=== PATIENT | female | born 1955 | race Two or more races ===

== ENCOUNTER 2018-05-25 07:24 | Day surgery (SDC) | payer OTHER ==
[2018-05-25] MEDS ORDERED: IRON SUCROSE INJECTION 200 MG in SODIUM CHLORIDE 100 ML IVPB ONE (09:00)
[2018-05-25 10:03] VITALS: TEMP 98.5
[2018-05-25 10:46] VITALS: BP 146/84; PULSE 62
== END 2018-05-25 10:47 | disposition home or self-care (01) ==
LOC: JONCNONCHE 07:24 → J7W 09:41 → JONCNONCHE 10:47
PROVIDERS: ATTEND Internal Medicine Hematology & Oncology
PROC: 3E033GC Introduction of Other Therapeutic Substance into Peripheral Vein, Percutaneous Approach (ICD-10-PCS; principal; 2018-05-25)
DX: D50.9 Iron deficiency anemia, unspecified (principal)
CPT/HCPCS: 96365; J1756

== ENCOUNTER 2018-06-15 07:22 | Day surgery (SDC) | payer OTHER ==
[2018-06-15] MEDS ORDERED: IRON SUCROSE INJECTION 200 MG in SODIUM CHLORIDE 100 ML IVPB ONE (10:00)
[2018-06-15 16:52] VITALS: TEMP 98.7
[2018-06-15 16:54] VITALS: BP 146/88; PULSE 64
== END 2018-06-15 11:50 | disposition home or self-care (01) ==
LOC: JONCNONCHE 07:22 → J7W 10:48 → JONCNONCHE 11:50
PROVIDERS: ATTEND Internal Medicine Hematology & Oncology
PROC: 3E033GC Introduction of Other Therapeutic Substance into Peripheral Vein, Percutaneous Approach (ICD-10-PCS; principal; 2018-06-15)
DX: D50.9 Iron deficiency anemia, unspecified (principal)
CPT/HCPCS: 96365; J1756

== ENCOUNTER 2018-07-06 07:35 | Emergency (ER) | payer OTHER ==
[2018-07-06 07:55] VITALS: TEMP 98.6; BMI 33.9
[2018-07-06] MEDS ORDERED: FAMOTIDINE 20 MG/50 ML IVPB 20 MG/50 ML MG IVPB ONE ×2 (07:55→08:01)
[2018-07-06] MEDS ORDERED: methylPREDNISolone NA SUCC 125 MG/2 ML VIAL IVPB ONE (07:55)
[2018-07-06] MEDS ORDERED: methylPREDNISolone NA SUCC 125 MG/2 ML VIAL ONE (08:01)
--- NOTE | 2018-07-06 08:11 | PDOC ---
History of Present Illness - General Chief Complaint: Allergic Reaction Stated Complaint: ALLERGIC RX Time Seen by Provider: 07/06/18 07:50 History Source: Patient Exam Limitations: No Limitations - History of Present Illness Initial Comments: 07/06/18 08:05 Patient is a 63F with history of HTN here today complaining of lip swelling with associated urticarial rash. Patient states that she takes lisinopril and hydrochlorothiazide for her blood pressure. Denies any new changes to her medications. Denies changes to soaps or new foods. Denies insect stings. Patient states that this reaction started yesterday with a rash, she is presenting to the ED today because her lips have started swelling. Denies shortness of breath, chest pain, stridor. Past History - Past Medical History Allergies/Adverse Reactions: Allergies Allergy/AdvReac Type Severity Reaction Status Date / Time No Known Allergies Allergy Verified 07/06/18 07:42 Home Medications: Ambulatory Orders Amlodipine Besylate [Norvasc -] 5 mg PO DAILY #30 tablet 07/06/18 Diphenhydramine [Benadryl -] 50 mg PO Q6H #8 capsule 07/06/18 Prednisone [Prednisone 50 MG TABLETS] 50 mg PO DAILY #3 tablet 07/06/18 COPD: No HTN: Yes - Surgical History Gastric Stapling: Yes (gastric bypass) - Suicide/Smoking/Psychosocial Hx Smoking History: Never smoked Number of Cigarettes Smoked Daily: 0 Hx Alcohol Use: No Drug/Substance Use Hx: No Review of Systems - Review of Systems Comments:: 07/06/18 08:08 GENERAL/CONSTITUTIONAL: No fever or chills. No weakness. HEAD, EYES, EARS, NOSE AND THROAT: No change in vision. No sore throat. CARDIOVASCULAR: No chest pain or shortness of breath RESPIRATORY: No cough, wheezing, or hemoptysis. +Lip swelling GASTROINTESTINAL: No nausea, vomiting, diarrhea or constipation. GENITOURINARY: No dysuria, frequency, or change in urination. MUSCULOSKELETAL: No joint or muscle swelling or pain. No neck or back pain. SKIN: + rash NEUROLOGIC: No headache, vertigo, loss of consciousness, or change in strength/ sensation. ENDOCRINE: No increased thirst. No abnormal weight change HEMATOLOGIC/LYMPHATIC: No anemia, easy bleeding, or history of blood clots. ALLERGIC/IMMUNOLOGIC: + hives +skin allergy. *Physical Exam - Vital Signs Last Vital Signs Temp Pulse Resp BP Pulse Ox 98.6 F 73 18 174/87 97 07/06/18 07:42 07/06/18 07:42 07/06/18 07:42 07/06/18 07:42 07/06/18 07:42 - Physical Exam Comments: 07/06/18 08:09 GENERAL: Awake, alert, and fully oriented, in no acute distress HEAD: No signs of trauma, normocephalic, atraumatic EYES: PERRLA, EOMI, sclera anicteric, conjunctiva clear ENT: Auricles normal inspection, hearing grossly normal, nares patent. Moist mucosa. Swollen lips. Normal uvula, no edema under tongue, no stridor NECK: Normal ROM, supple, no lymphadenopathy, JVD, or masses LUNGS: No distress, speaks full sentences, clear to auscultation bilaterally HEART: Regular rate and rhythm, normal S1 and S2, no murmurs, rubs or gallops, peripheral pulses normal and equal bilaterally. ABDOMEN: Soft, nontender, normoactive bowel sounds. No guarding, no rebound. No masses EXTREMITIES: Normal inspection, Normal range of motion, no edema. No clubbing or cyanosis. NEUROLOGICAL: Cranial nerves II through XII grossly intact. Normal speech, normal gait, no focal sensorimotor deficits SKIN: Warm, Dry, normal turgor, +diffuse urticarial rash Medical Decision Making - Medical Decision Making 07/06/18 08:10 Patient is 63F with history of HTN here today with allergic reaction. Vital signs normal and stable. Airway clear. Will treat with pepcid, benadryl, steroids. Deferring on epi at this point given stable airway, no wheezing and slow development of reaction. 07/06/18 10:02 Patient reassessed. Improving. Less angioedema, less urticaria. Lungs clear. 07/06/18 14:29 Patient reassessed, angioedema resolved, rash resolved. Will discharge. Instructed to not take her blood pressure medication. Instructed to take benadryl q6 for the next two days. Return precautions discussed. Instructed to follow up with pcp. Patient expressed understanding. *DC/Admit/Observation/Transfer Diagnosis at time of Disposition: Allergic reaction - Discharge Dispostion Disposition: HOME Condition at time of disposition: Good Decision to Admit order: No - Referrals Referrals: Fermin Griffin MD [Primary Care Provider] - - Patient Instructions Printed Discharge Instructions: DI for Adverse Drug Reaction -- Allergic Additional Instructions: Please stop taking your current blood pressure medication immediately Please take Norvasc 5 for your blood pressure instead. Please return if you have any new, worsening or concerning symptoms. Please take the benadryl 50mg as directed every 6 hours. Please take the prednisone daily starting tomorrow. - Post Discharge Activity
--- NOTE | 2018-07-06 08:43 | PDOC ---
Attending Attestation - Resident Resident Name: Fermin Dhaliwal - ED Attending Attestation I have performed the following: I have examined & evaluated the patient, The case was reviewed & discussed with the resident, I agree w/resident's findings & plan, Exceptions are as noted - HPI HPI: 07/06/18 08:37 63-year-old female history of hypertension here today complaining of an ALLERGIC reaction. Patient states her symptoms started yesterday with itching on her skin and the rash she noticed 1 small area of swelling in her upper lip today when she woke up she noticed significant lip swelling denies any wheezing or stridor no difficulty breathing or difficulty swallowing she is on JA inhibitor lisinopril. No history of similar ALLERGIC reactions no new medications she did have a hernia repair 2 weeks ago with mesh placement but denies any new antibiotics or other new foods - Physicial Exam PE: 07/06/18 08:4 awake alert lungs clear bilaterally. heart rrr nomrg. abd soft nt nd. skin warm and dry. noted urticarial type rash HEENT: upper and lower lip swelling. no tongue swelling. no uvular edema. no sublingual swelling or edema. no stridor. no wheezing. - Medical Decision Making 07/06/18 08:43 63 yo F with allergic reaction involving face and lips. no other signs of current airway involvement. unknown source, possible AJ inhibitor. no new food.s plan discontinue aj, steroids, benadryl, pepcid, . will observe. call pt insurance auditor to discuss med adjustment. 07/06/18 14:31 pt reassessed. much improved. lip swelling improved. rash not visible. will dc with prednisone. told to stop her lisnipril. called rena goode to discuss awaiting call back. 07/06/18 14:45 d/w rena arredondo. recommend dc lisinopril. start norvasc 5 mg. will see her monday at 12:30.
[2018-07-06] MEDS ORDERED: IRON SUCROSE INJECTION 200 MG in SODIUM CHLORIDE 100 ML IVPB ONE (09:00)
[2018-07-06 15:10] VITALS: BP 137/71; PULSE 85
== END 2018-07-06 15:10 | disposition home or self-care (01) ==
LOC: JER 07:35
PROC: 3E033GC Introduction of Other Therapeutic Substance into Peripheral Vein, Percutaneous Approach (ICD-10-PCS; principal; 2018-07-06)
DX: T78.40XA Allergy, unspecified, initial encounter (principal); I10 Essential (primary) hypertension
CPT/HCPCS: 96365; 96375; 96376; 99284-25

== ENCOUNTER 2018-07-13 07:33 | Day surgery (SDC) | payer OTHER ==
[2018-07-13] MEDS ORDERED: IRON SUCROSE INJECTION 200 MG in SODIUM CHLORIDE 100 ML IVPB ONE (09:00)
[2018-07-13 17:37] VITALS: BP 149/88; PULSE 75; TEMP 97.9
== END 2018-07-13 10:45 | disposition home or self-care (01) ==
LOC: JONCNONCHE 07:33 → J7W 09:22 → JONCNONCHE 10:45
PROVIDERS: ATTEND Internal Medicine Hematology & Oncology
PROC: 3E033GC Introduction of Other Therapeutic Substance into Peripheral Vein, Percutaneous Approach (ICD-10-PCS; principal; 2018-07-13)
DX: D50.9 Iron deficiency anemia, unspecified (principal)
CPT/HCPCS: 96365; J1756

== ENCOUNTER 2018-07-23 07:26 | Day surgery (SDC) | payer OTHER ==
[2018-07-23] MEDS ORDERED: IRON SUCROSE INJECTION 200 MG in SODIUM CHLORIDE 100 ML IVPB ONE (09:00)
[2018-07-23 09:21] VITALS: TEMP 97.9
[2018-07-23 11:18] VITALS: BP 146/76; PULSE 63
== END 2018-07-23 10:05 | disposition home or self-care (01) ==
LOC: JONCCHEMO 07:26 → J7W 09:13 → JONCCHEMO 10:05
PROVIDERS: ATTEND Internal Medicine Hematology & Oncology
PROC: 3E033GC Introduction of Other Therapeutic Substance into Peripheral Vein, Percutaneous Approach (ICD-10-PCS; principal; 2018-07-23)
DX: D50.9 Iron deficiency anemia, unspecified (principal)
CPT/HCPCS: 96365; J1756

== ENCOUNTER 2018-09-03 07:29 | Day surgery (SDC) | payer OTHER ==
[2018-09-03] MEDS ORDERED: IRON SUCROSE INJECTION 200 MG in SODIUM CHLORIDE 100 ML IVPB ONE (09:00)
[2018-09-03 13:17] VITALS: TEMP 98.1
[2018-09-03 13:21] VITALS: BP 140/77; PULSE 66
== END 2018-09-03 10:00 | disposition home or self-care (01) ==
LOC: JONCCHEMO 07:29 → JONCNONCHE 07:29 → J7W 09:00 → JONCNONCHE 10:00
PROVIDERS: ATTEND Internal Medicine Hematology & Oncology
PROC: 3E033GC Introduction of Other Therapeutic Substance into Peripheral Vein, Percutaneous Approach (ICD-10-PCS; principal; 2018-09-03)
DX: D50.9 Iron deficiency anemia, unspecified (principal)
CPT/HCPCS: 96365; J1756

== ENCOUNTER 2018-10-01 07:20 | Day surgery (SDC) | payer OTHER ==
[2018-10-01] MEDS ORDERED: IRON SUCROSE INJECTION 200 MG in SODIUM CHLORIDE 100 ML IVPB ONE (10:00)
[2018-10-01 15:35] VITALS: TEMP 97.7
[2018-10-01 15:58] VITALS: BP 146/78; PULSE 60
== END 2018-10-01 10:15 | disposition home or self-care (01) ==
LOC: JONCNONCHE 07:20 → J7W 09:19 → JONCNONCHE 10:15
PROVIDERS: ATTEND Internal Medicine Hematology & Oncology
PROC: 3E033GC Introduction of Other Therapeutic Substance into Peripheral Vein, Percutaneous Approach (ICD-10-PCS; principal; 2018-10-01)
DX: D50.9 Iron deficiency anemia, unspecified (principal)
CPT/HCPCS: 96365; J1756

== ENCOUNTER 2020-09-21 19:08 | Emergency (ER) | payer OTHER ==
[2020-09-21 19:11] VITALS: BMI 38.7
[2020-09-21] MEDS ORDERED: FAMOTIDINE 20 MG/50 ML IVPB 20 MG/50 ML MG IVPB ONE ×2 (19:58→20:11)
[2020-09-21] MEDS ORDERED: ACETAMINOPHEN 1000 MG/100 ML VIAL (NON FORMULARY) IVPB ONE (19:58)
[2020-09-21] MEDS ORDERED: MAG HYDROX/AL HYDROX/SIMETH 30 ML UNIT-DOSE CUP PO ONE (19:58)
[2020-09-21] MEDS ORDERED: ONDANSETRON 4 MG/2 ML VIAL IVPUSH ONE (19:58)
[2020-09-21] MEDS ORDERED: SODIUM CHLORIDE 1,000 ML IV STA (19:58)
[2020-09-21] MEDS ORDERED: ONDANSETRON 4 MG/2 ML VIAL ONE (20:10)
[2020-09-21] MEDS ORDERED: MAG HYDROX/AL HYDROX/SIMETH 30 ML UNIT-DOSE CUP ONE (20:10)
[2020-09-21] MEDS ORDERED: ACETAMINOPHEN INJECTION 100 ML IVPB ONE (20:10)
[2020-09-21 20:41] LABS: CHLORIDE 103 mmol/L (98-107); POTASSIUM 3.8 mmol/L (3.5-5.1); SODIUM 138 mmol/L (136-145)
[2020-09-21 20:43] LABS: BLOOD UREA NITROGEN 9.2 mg/dL (7-18); CALCIUM 9.1 mg/dL (8.5-10.1)
[2020-09-21 20:44] LABS: ALBUMIN 3.9 g/dl (3.4-5.0); ANION GAP 5 MMOL/L (8-16); CO2 30 mmol/L (21-32); GLUCOSE,RANDOM 116 mg/dL (74-106); LIPASE 169 U/L (73-393); MAGNESIUM 2.1 mg/dL (1.8-2.4)
[2020-09-21 20:46] LABS: CREATININE 0.6 mg/dL (0.55-1.3)
[2020-09-21 20:47] LABS: SGOT/AST 15 U/L (15-37); SGPT/ALT 28 U/L (13-61)
[2020-09-21 20:48] LABS: BILIRUBIN,TOTAL 0.4 mg/dL (0.2-1); TOT PROT 7.8 g/dl (6.4-8.2)
[2020-09-21 20:49] LABS: ALK PHOS 99 U/L (45-117)
[2020-09-21 20:51] LABS: BASO % 1.3 % (0-2.0); EOS % 2.1 % (0-4.5); HEMATOCRIT 40.6 % (32.4-45.2); HEMOGLOBIN 12.6 GM/dL (10.7-15.3); LYMPH % 35.9 % (8-40); MCHC 31.1 g/dl (32.0-36.0); MEAN CELL VOLUME 80.4 fl (80-96); MEAN PLT VOLUME 10.9 fl (7.5-11.1); MONO % 7.6 % (3.8-10.2); NEUT % 53.1 % (42.8-82.8); PLATELET COUNT 167 K/MM3 (134-434); RBC 5.06 M/mm3 (3.60-5.2); RDW 14.4 % (11.6-15.6); WHITE BLOOD COUNT 4.8 K/mm3 (4.0-10.0)
[2020-09-21 21:17] VITALS: BP 170/87; PULSE 65; TEMP 98.3
== END 2020-09-21 21:49 | disposition home or self-care (01) ==
LOC: JER 19:08
PROC: 3E0333Z Introduction of Anti-inflammatory into Peripheral Vein, Percutaneous Approach (ICD-10-PCS; principal; 2020-09-21)
PROC: 3E033GC Introduction of Other Therapeutic Substance into Peripheral Vein, Percutaneous Approach (ICD-10-PCS; 2020-09-21)
PROC: 3E033GC Introduction of Other Therapeutic Substance into Peripheral Vein, Percutaneous Approach (ICD-10-PCS; 2020-09-21)
PROC: 3E0337Z Introduction of Electrolytic and Water Balance Substance into Peripheral Vein, Percutaneous Approach (ICD-10-PCS; 2020-09-21)
DX: R11.14 Bilious vomiting (principal); R10.9 Unspecified abdominal pain
CPT/HCPCS: 36415; 71045-TC-FY; 80053; 82550; 83690; 83735; 84484; 85025; 93005; 93010; 99285-25; J0131

== ENCOUNTER 2020-10-21 07:14 | Day surgery (SDC) | payer OTHER ==
[2020-10-21] MEDS ORDERED: FERRIC CARBOXYMALTOSE 750 MG in SODIUM CHLORIDE 250 ML IVPB ONE (10:00)
[2020-10-21 14:46] LABS: BASO % 0.7 % (0-2.0); HEMATOCRIT 36.8 % (32.4-45.2); HEMOGLOBIN 11.9 GM/dL (10.7-15.3); LYMPH % 48.2 % (8-40); MCH 25.7 pg (25.7-33.7); MCHC 32.2 g/dl (32.0-36.0); MEAN CELL VOLUME 79.9 fl (80-96); MEAN PLT VOLUME 11.3 fl (7.5-11.1); MONO % 10.3 % (3.8-10.2); NEUT % 37.8 % (42.8-82.8); PLATELET COUNT 163 K/MM3 (134-434); RDW 14.4 % (11.6-15.6); WHITE BLOOD COUNT 3.6 K/mm3 (4.0-10.0)
[2020-10-21 15:08] LABS: ALBUMIN 3.4 g/dl (3.4-5.0); CALCIUM 8.6 mg/dL (8.5-10.1)
[2020-10-21 15:09] LABS: BLOOD UREA NITROGEN 9.9 mg/dL (7-18)
[2020-10-21 15:13] LABS: TOT PROT 6.9 g/dl (6.4-8.2)
[2020-10-21 15:23] LABS: BILIRUBIN,TOTAL 0.5 mg/dL (0.2-1); CREATININE 0.6 mg/dL (0.55-1.3)
[2020-10-21 17:18] VITALS: TEMP 97.8
[2020-10-21 17:19] VITALS: BP 142/94; PULSE 54
== END 2020-10-21 15:50 | disposition home or self-care (01) ==
LOC: JONCNONCHE 07:14
PROVIDERS: ATTEND Internal Medicine Hematology & Oncology
PROC: 3E033GC Introduction of Other Therapeutic Substance into Peripheral Vein, Percutaneous Approach (ICD-10-PCS; principal; 2020-10-21)
DX: D50.9 Iron deficiency anemia, unspecified (principal)
CPT/HCPCS: 36415; 80053; 82728; 83540; 83550; 85025; 96365; J1439

== ENCOUNTER 2020-10-28 07:49 | Day surgery (SDC) | payer OTHER ==
[2020-10-28] MEDS ORDERED: FERRIC CARBOXYMALTOSE 750 MG in SODIUM CHLORIDE 250 ML IVPB ONE (14:00)
[2020-10-28 17:27] VITALS: BP 122/74; PULSE 58
[2020-10-28 17:28] VITALS: TEMP 98.3
== END 2020-10-28 15:50 | disposition home or self-care (01) ==
LOC: JONCNONCHE 07:49
PROVIDERS: ATTEND Internal Medicine Hematology & Oncology
PROC: 3E033GC Introduction of Other Therapeutic Substance into Peripheral Vein, Percutaneous Approach (ICD-10-PCS; principal; 2020-10-28)
DX: D50.9 Iron deficiency anemia, unspecified (principal)
CPT/HCPCS: 96365; J1439

== ENCOUNTER 2020-11-16 04:26 | Day surgery (SDC) | payer OTHER ==
[2020-11-12 16:23] VITALS: BMI 37.9
[2020-11-16] MEDS ORDERED: PROPOFOL 20 ML ONE (12:14)
[2020-11-16] MEDS ORDERED: MIDAZOLAM HCL 2 MG/2 ML SINGLE DOSE VIAL ONE (12:14)
[2020-11-16] MEDS ORDERED: KETOROLAC TROMETHAMINE 30 MG/1 ML VIAL ONE (12:55)
[2020-11-16 15:29] VITALS: BP 121/60; PULSE 66; TEMP 98
== END 2020-11-16 15:00 | disposition home or self-care (01) ==
LOC: JASU-SURG 04:26
PROVIDERS: ATTEND Urology
PROC: 0TF4XZZ Fragmentation in Left Kidney Pelvis, External Approach (ICD-10-PCS; principal; 2020-11-16 11:30)
DX: N20.0 Calculus of kidney (principal)

== ENCOUNTER → 2021-04-01 | Day surgery (SDC) | payer OTHER | END | disposition home or self-care (01) | LOC: JRADIR 09:35 | PROVIDERS: ATTEND Internal Medicine Endocrinology, Diabetes & Metabolism | PROC: 0G9K3ZX Drainage of Thyroid Gland, Percutaneous Approach, Diagnostic (ICD-10-PCS; principal; 2021-04-01) | DX: E04.1 Nontoxic single thyroid nodule (principal) | CPT/HCPCS: 10005; 76942; 88173; 88305-TC ==